=== PATIENT | female | born 1990 | race Caucasian/White ===

== ENCOUNTER 2017-07-20 12:19 | Outpatient (CLI) | payer OTHER ==
[~2017-07-20] VITALS: Ht 162.6 cm; Wt 84.5 kg
[2017-07-20 12:33] VITALS: BP 110/59; PULSE 82
[2017-07-20 12:42] VITALS: Ht 162.6 cm; Wt 84.5 kg
--- NOTE | 2017-07-20 12:59 | RADRPT ---
PROCEDURE: US OB. CLINICAL INDICATION: Size and dates TECHNIQUE: Multiple sonographic images of the pelvis and gravid uterus were obtained. The images were reviewed on a PACS workstation. COMPARISON: No prior studies are available for comparison. FINDINGS: There is a single viable intrauterine gestation. Cardiac activity is present with 128 beats per min crow. There is a vertex presentation. The placenta is anterior. There is no evidence for an abruption or placenta previa. Measurements were made in order to determine age. The results are as follows: BPD =9.1 cm HC =33.2 cm AC =33.3 cm FL =7.5 cm Estimated gestational age of approximately 37 weeks and 4 days based on ultrasound measurements. Clinical age: 40 weeks and 1 day. The estimated date of delivery is 08/06/17, based on ultrasound measurements. The EFW = 3228 g, 18.4%, based on LMP age. RPTAT: AA IMPRESSION: Single viable intrauterine gestation of approximately 37 weeks and 4 days based on ultrasound measu rements. Smaller than clinical age by 2.5 weeks. .Jagjit Ceron MD, MD Date Time Electronically viewed and signed by .Jagjit Ceron MD, on 07/20/2017 12:59 .S/
[2017-07-20] MEDS ORDERED: methadone (13:00)
[2017-07-20] MEDS ORDERED: PRENAT PO (13:01)
--- NOTE | 2017-07-20 14:14 | RADRPT ---
PROCEDURE: US OB biophysical profile. CLINICAL INDICATION: decreased movements, post dates TECHNIQUE: Multiple sonographic images of the pelvis were obtained. The images were reviewed on a PACS workstation. COMPARISON: No prior studies are available for comparison. FINDINGS: There is a single viable intrauterine gestation. Cardiac activity is present with 128 beats per min crow. There is a vertex presentation. The placenta is anterior. There is no evidence of placental abruption. There is a slightly decreased amount of amniotic fluid with an PAVEL = 7.4 cm. Biophysical profile: movement 2/2 tone 2/2. breathing 2/2 PAVEL 2/2 Total 07/03 RPTAT: AA . IMPRESSION: Normal biophysical profile. Slightly decreased PAVEL. . .Jagjit Ceron MD, Date Time Electronically viewed and signed by .Jagjit Ceron MD, MD on 07/20/2017 14:13 .S/
[2017-07-20] MEDS ORDERED: LACTATED RINGER'S 1,000 ML IV ONE (14:45)
--- NOTE | 2017-07-20 14:49 | PN ---
Triage Information Date/Time Reason for visit: Weeks of Gestation 40w 1d /Para Additional information Taking methadone, smoker Objective Vital Signs Date Time Temp Pulse Resp B/P Pulse Ox O2 Delivery O2 Flow Rate FiO2 07/20/17 12:33 98.3 82 110/59 96 Room Air Heart Rate Comments reactive Contractions: 6-10 Minutes Apart Results/Medications Medications Current Medications Lactated Ringer's 1,000 ml @ 1,000 mls/hr Q1H ONCE IV ; Start 07/20/17 at 14:45 ; Stop 07/20/17 at 15:44 Lactated Ringer's (Lr) 1,000 ml @ 125 mls/hr Q8H IV ; Start 07/20/17 at 15:00 Imaging Results EFW 3228g, BPP 07/03 PAVEL 7.4cm Disposition: Assessment/Plan 27 y/o at 40w 1d who here for postdates -IVFs, recheck PAVEL -discharge home with labor precautions pending repeat PAVEL -discussed f/u with OB for plan of care if discharged home YUNG MASTERSON Jul 20, 2017 14:49
[2017-07-20] MEDS ORDERED: LACTATED RINGER'S 1,000 ML IV SCH (15:00)
--- NOTE | 2017-07-20 16:14 | RADRPT ---
PROCEDURE: US evaluation of amniotic fluid volume. CLINICAL INDICATION: Decreased motion. TECHNIQUE: Multiple sonographic images of the gravid uterus were obtained utilizing martin-scale gary ging. Sagittal and transverse images were obtained. The images were reviewed on a PACS workstation . PAVEL was measured. COMPARISON: No prior studies are available for comparison. FINDINGS: There is a single live intrauterine . heart rate is 128 beats per minute. Position is cephalic. Placenta is anterior with no abruption or previa. PAVEL is 9.9 cm. (Normal = 5-20 cm.) IMPRESSION: 1. PAVEL is 9.9 cm. RPTAT: QQ .Matt Hutchins MD, Date Time Electronically viewed and signed by .Matt Hutchins MD, on 07/20/2017 16:13 .R/
== END 2017-07-20 16:55 | disposition home or self-care (01) ==
LOC: OBT 12:19 → L-D 12:19 → OBT 16:55
PROVIDERS: ATTEND Obstetrics & Gynecology
DX: O48.0 Post-term pregnancy (principal); Z3A.40 40 weeks gestation of pregnancy
CPT/HCPCS: 36415; 76815; 76816; 76818; 96360; 96361; J7120; Z7500; G0463